=== PATIENT | female | born 1985 | race Caucasian/White ===

== ENCOUNTER 2021-07-20 10:48 | Outpatient (CLI) | payer OTHER | END 2021-07-20 10:49 | disposition home or self-care (01) | LOC: BICRAD 10:48 | PROVIDERS: ATTEND Physician Assistant | DX: M54.2 Cervicalgia (principal); M53.3 Sacrococcygeal disorders, not elsewhere classified; M54.5 Low back pain; M47.812 Spondylosis without myelopathy or radiculopathy, cervical region | CPT/HCPCS: 72050; 72100; 72220 ==

== ENCOUNTER 2021-08-03 13:30 | Outpatient (CLI) | payer OTHER | END 2021-08-03 13:31 | disposition home or self-care (01) | LOC: BICMRI 13:30 | PROVIDERS: ATTEND Physician Assistant | DX: M50.323 Other cervical disc degeneration at C6-C7 level (principal); M50.222 Other cervical disc displacement at C5-C6 level; R29.898 Other symptoms and signs involving the musculoskeletal system | CPT/HCPCS: 72141 ==

== ENCOUNTER 2021-10-17 09:04 | Outpatient (CLI) | payer OTHER | END 2021-10-17 09:05 | disposition home or self-care (01) | LOC: BICMRI 09:04 | PROVIDERS: ATTEND Neurological Surgery | DX: M54.50 Low back pain, unspecified (principal); M53.3 Sacrococcygeal disorders, not elsewhere classified; M47.816 Spondylosis without myelopathy or radiculopathy, lumbar region; K42.9 Umbilical hernia without obstruction or gangrene; M79.89 Other specified soft tissue disorders | CPT/HCPCS: 72148; 72195 ==